=== PATIENT | female | born 1995 | race Two or more races ===

== ENCOUNTER 2017-08-13 10:33 | Outpatient (CLI) | payer OTHER ==
[2017-08-13 11:22] LABS: APPEARANCE,URINE SLIGHTLY-CLOUDY; BILIRUBIN,URINE NEGATIVE (NEGATIVE); COLOR,URINE YELLOW; GLUCOSE, URINE NEGATIVE (NEGATIVE); KETONES,URINE NEGATIVE (NEGATIVE); LEUKOCYTE ESTERASE,URINE TRACE (NEGATIVE); NITRITE,URINE NEGATIVE (NEGATIVE); PROTEIN,URINE NEGATIVE (NEGATIVE); URINE SPECIFIC GRAVITY 1.008; UROBILINOGEN,URINE NEGATIVE mg/dL (<2.0)
--- NOTE | 2017-08-13 11:37 | Non Stress Test Report ---
Non Stress Test Datetime Report Generated by CPN: 08/13/2017 11:36 DEMOGRAPHIC EGA NST: 39.1 INDICATION Indication for Study: Ordered by Provider MONITORING Monitor Explained: Monitor Explained; Test Explained; Patient Verbalized Understanding Time on Monitor: 08/13/2017 10:52 Time off Monitor: 08/13/2017 11:29 NST Duration: 37 NST INTERVENTIONS NST Interventions: None Physician Notified NST: Dr. fish BABY A: [id number] BABY A Movement : Present Contraction Frequency : irregular FHR Baseline : 145 Accelerations : 15X15 Decelerations : None Variability : Moderate 6-25bpm NST Review: Meets Criteria for Reactive NST NST Review and Verified By : HARIS REYES RN NST Results: Reactive NST REPORT Report Trigger: Send Report
[2017-08-13 11:48] LABS: URINE AMPHETAMINES SCREEN NEGATIVE; URINE BARBITURATES SCREEN NEGATIVE; URINE BENZODIAZEPINES SCREEN NEGATIVE; URINE COCAINE SCREEN NEGATIVE; URINE MARIJUANA (THC) SCREEN NEGATIVE; URINE METHADONE SCREEN NEGATIVE; URINE PHENCYCLIDINE SCREEN NEGATIVE
== END 2017-08-13 11:37 | disposition home or self-care (01) ==
LOC: LC 10:33
PROVIDERS: ATTEND Student in an Organized Health Care Education/Training Program
PROC: 4A1HXCZ Monitoring of Products of Conception, Cardiac Rate, External Approach (ICD-10-PCS; principal; 2017-08-13)
DX: O47.1 False labor at or after 37 completed weeks of gestation (principal); Z3A.39 39 weeks gestation of pregnancy
CPT/HCPCS: 59025; 80307; 81001

== ENCOUNTER 2017-08-14 10:21 | Inpatient (IN) | payer OTHER ==
[2017-08-14] MEDS ORDERED: MISOPROSTOL 0.2 MG TABLET ONE (11:11)
[2017-08-14] MEDS ORDERED: OXYTOCIN/NORMAL SALINE 20 UNIT/1,000 ML RTUINJ ONE (11:11)
[2017-08-14] MEDS ORDERED: LIDOCAINE 1% INJ-PF (10 MG/ML) 30 ML SDV ONE (11:11)
[2017-08-14 11:35] LABS: APPEARANCE,URINE CLOUDY; BILIRUBIN,URINE NEGATIVE (NEGATIVE); COLOR,URINE YELLOW; GLUCOSE, URINE NEGATIVE (NEGATIVE); KETONES,URINE NEGATIVE (NEGATIVE); LEUKOCYTE ESTERASE,URINE LARGE (NEGATIVE); NITRITE,URINE NEGATIVE (NEGATIVE); PROTEIN,URINE NEGATIVE (NEGATIVE); UROBILINOGEN,URINE NEGATIVE mg/dL (<2.0)
--- NOTE | 2017-08-14 11:47 | L&D Progress Notes ---
PROGRESS NOTES Datetime Report Generated by CPN: 08/14/2017 11:47 PROGRESS NOTE Impression: Normal Progression of Labor; Reactive Non Stress Test Procedures: Artificial ROM; Sterile Vag Exam Plan: Continue Present Management Informed Consent Obtained: Vaginal Delivery Vital Signs : Reviewed; Within Normal Limits Comment: VE = rim, arom, + light mec, tolerating labor well, Cat 1 strip VAGINAL EXAM Dilatation: 9 Effacement: 100 Station: 0 MEMBRANES Membranes: Ruptured Membranes: Intact Amniotic Fluid Color: Meconium, Light FETUS A FHR - Baseline: 155 Monitoring: External US Variability: Moderate 6-25bpm Accelerations: 15X15 Decelerations: None SIGNATURE SIGNATURE: [id number] SIGNATURE: [id number] Assignment: Leticia Romano MD Signature: with User ID: [email or web address] : with User ID: [email or web address]
[2017-08-14 11:53] LABS: URINE AMPHETAMINES SCREEN NEGATIVE; URINE BARBITURATES SCREEN NEGATIVE; URINE BENZODIAZEPINES SCREEN NEGATIVE; URINE COCAINE SCREEN NEGATIVE; URINE MARIJUANA (THC) SCREEN NEGATIVE; URINE METHADONE SCREEN NEGATIVE; URINE PHENCYCLIDINE SCREEN NEGATIVE
[2017-08-14] MEDS ORDERED: ACETAMINOPHEN 650 MG SUPP.RECT PR PRN (13:58)
[2017-08-14] MEDS ORDERED: MAGNESIUM HYDROXIDE SUSP 30 ML UDCUP PO PRN (13:58)
[2017-08-14] MEDS ORDERED: ACETAMINOPHEN WITH CODEINE #3 TABLET PO PRN ×2 (13:58)
[2017-08-14] MEDS ORDERED: DIPH/PERTUSS(ACELL)/TETANUS VAC/PF 0.5 ML SYR (>=10YO) IM PRN (13:58)
[2017-08-14] MEDS ORDERED: PROMETHAZINE HCL 25 MG SUPP.RECT PR PRN (13:58)
[2017-08-14] MEDS ORDERED: PROMETHAZINE HCL INJ 25 MG/1 ML VIAL IV PRN (13:58)
[2017-08-14] MEDS ORDERED: MEASLES,MUMPS&RUBELLA VACC/PF 0.5 ML VIAL SUBCUT PRN (13:58)
[2017-08-14] MEDS ORDERED: PROMETHAZINE HCL 25 MG TABLET PO PRN (13:58)
[2017-08-14] MEDS ORDERED: DIBUCAINE 1% OINTMENT 28 GM TP PRN (13:58)
[2017-08-14] MEDS ORDERED: OXYTOCIN/NORMAL SALINE 20 UNIT/1,000 ML RTUINJ IV PRN (13:58)
[2017-08-14] MEDS ORDERED: DIPHENHYDRAMINE HCL 25 MG CAPSULE PO PRN (13:58)
[2017-08-14] MEDS ORDERED: PSEUDOEPHEDRINE HCL 30 MG TABLET PO PRN (13:58)
[2017-08-14] MEDS ORDERED: MISOPROSTOL 0.2 MG TABLET PR PRN (13:58)
[2017-08-14] MEDS ORDERED: NA PHOS,M-B/NA PHOS,DI-BA (ADULT) 133 ML ENEMA PR PRN (13:58)
[2017-08-14] MEDS ORDERED: BENZOCAINE/MENTHOL AEROSOL SPRAY 56 ML TOP PRN (13:58)
[2017-08-14] MEDS ORDERED: GLYCERIN/WITCH HAZEL LEAF 1 EACH MED..PAD TP PRN (13:58)
[2017-08-14 13:59] LABS: HEMATOCRIT 34.7 % (36.0-47.0); HEMOGLOBIN 11.4 g/dL (12.0-15.5); MEAN CORPUSCULAR HEMOGLOBIN 28.3 pg (27.0-33.4); MEAN CORPUSCULAR HGB CONC 32.9 g/dL (32.0-36.0); MEAN CORPUSCULAR VOLUME 86 fl (80-97); PLATELET COUNT 226 10^3/uL (150-450); RED BLOOD COUNT 4.03 10^6/uL (3.72-5.28); RED CELL DISTRIBUTION WIDTH 14.4 % (11.5-14.0); WHITE BLOOD COUNT 23.6 10^3/uL (4.0-10.5)
[2017-08-14 14:18] LABS: ABSOLUTE LYMPHOCYTES# (MANUAL) 2.4 10^3/uL (0.5-4.7); ABSOLUTE MONOCYTES # (MANUAL) 1.9 10^3/uL (0.1-1.4); ABSOLUTE NEUTROPHILS# (MANUAL) 19.4 10^3/uL (1.7-8.2); BASOPHILS % (MANUAL) 0 % (0-2); EOSINOPHILS % (MANUAL) 0 % (0-6); LYMPHOCYTES % (MANUAL) 9 % (13-45); MONOCYTES % (MANUAL) 8 % (3-13); SEGMENTED NEUTROPHILS % (MAN) 82 % (42-78); TOTAL CELLS COUNTED 100
[2017-08-14 14:19] LABS: ANISOCYTOSIS SLIGHT; PLATELET COMMENT ADEQUATE; TOXIC GRANULATION SLIGHT
--- NOTE | 2017-08-14 21:10 | Delivery Summary ---
Del Sum A-C Datetime Report Generated by CPN: 08/14/2017 21:10 DELIVERY PERSONNEL DELIVERY PERSONNEL: [id number] Delivery Doctor:: Erin Walter CNM Labor and Delivery Nurse:: Mike Grayson RNdirector clinical data Nurse:: Tiffani Glasgow RN Additional Personnel: : Mounika RAVIN Mijares MATERNAL INFORMATION Delivery Anesthesia: None Medications After Delivery: Pitocin Bolus-Please Comment; Pitocin Drip 20 Units/1000ml NSS; Cytotec 600mcg Per Rectum/Vagina Estimated Blood Loss (ml): 300 Maternal Complications: None Provider Comments: viable male from OA to NALLELY over ML lac, NC x 1, easily reduced, placed on mothers abd, suctioned, stimulated and pulse ox by Ashvin Mijares RNC. Spont delivery of grossly nl intact placenta, 3 VC, EBL 300 cc, cord gas to lab and cord blood, ML lac repaired with 2-0 vicryl without difficulty, FFFM, Pitocin, massage and Cytotec 600 mcg, Baby and mom remains in recovery in stable condition Both hsb and baby bonding LABOR SUMMARY EDC: 08/19/2017 00:00 No. Babies in Womb: 1 Attempted: No Labor Anesthesia: None LABOR INFORMATION Reason for Induction: Not Applicable Onset of Labor: 08/13/2017 15:00 Complete Dilatation: 08/14/2017 12:35 Oxytocin: N/A Group B Beta Strep: negative Antibiotics # of Doses: 0 Antibiotics Time of Last Dose: n/a Name of Antibiotic Given: n/a Steroids Given: None Reason Steroids Not Administered: Not Applicable Other Reason Not Administered: n/a MEMBRANES Membranes Rupture Method: Artificial Rupture of Membranes: 08/14/2017 11:40 Length of Rupture (hr): 1.75 Amniotic Fluid Color: Light Meconium Amniotic Fluid Amount: Small Amniotic Fluid Odor: Normal STAGES OF LABOR Stage 1 hr: 21 Stage 1 min: 35 Stage 2 hr: 0 Stage 2 min: 50 Stage 3 hr: 0 Stage 3 min: 8 Total Time in Labor hr: 22 Total Time in Labor min: 33 VAGINAL DELIVERY Episiotomy: None Laceration #1: Perineal Laceration Extension #1: Second Degree Laceration #2: Periurethral Laceration Extension #2: First Degree Laceration Repair: Yes Laceration Repair Note: 2-0 vicryl, Xylocaine 1% Sponge Count Correct: N/A Sharps Count Correct: N/A CSECTION DELIVERY Primary Indication: N/A Secondary Indication: N/A BABY A INFORMATION Infant Delivery Date/Time: 08/14/2017 13:25 Method of Delivery: Vaginal Born in Route : No : N/A Forceps: N/A Vacuum Extraction: N/A Shoulder Dystocia : No PRESENTATION/POSITION BABY A Presentation: Cephalic Cephalic Presentation: Vertex Vertex Position: Right Occipital Anterior Breech Presentation: N/A PLACENTA INFORMATION BABY A Placenta Delivery Time : 08/14/2017 13:33 Placenta Method of Delivery: Spontaneous Placenta Status: Delivered SCORES BABY A Heart Rate 1 min: >100 bpm Resp Effort 1 min: Good Cry Reflex Irritability 1 min: Cough or Sneeze or Pulls Away Muscle Tone 1 min: Some Flexion of Extremities Color 1 min: Blue/Pale Resuscitation Effort 1 min: Tactile Stimulation SCORE 1 MIN: 7 Heart Rate 5 min: >100 bpm Resp Effort 5 min: Good Cry Reflex Irritability 5 min: Cough or Sneeze or Pulls Away Muscle Tone 5 min: Some Flexion of Extremities Color 5 min: Body [place], Extremities Blue Resuscitation Effort 5 min: Tactile Stimulation SCORE 5 MIN: 8 INFANT INFORMATION BABY A Gestational Age at Delivery: 39.2 Gestational Status: Full Term- 39- 40.6 Weeks Infant Outcome : Liveborn Condition : Stable Infant Sex: Male IDENTIFICATION BABY A Verification Date/Time: 08/14/2017 14:33 ID Band Number: [id number] Mother's Name Verified: Yes RN Verifying Infant: Mike Grayson, RN AND Cecile Fernandes, RN WEIGHT/LENGTH BABY A Birthweight (gm): 3170 Weight (lb): 7 Infant Weight (oz): 0 Length (in): 20.50 Infant Length (cm): 52.07 CORD INFORMATION BABY A No. Cord Vessels: 3 Nuchal Cord : Around Neck x1, Loose Cord Blood Taken: Yes-For Eval (Mom's Blood Type - or O+) Suction: Mouth ASSESSMENT BABY A Infant Complications: Meconium Physical Findings at Delivery: Molding of the Head Respirations: Appears Normal Skin to Skin: Yes Skin to Skin Time (min): 90 Gas Usage Meter Clerk/ALS Called : No Care By: D Víctorctliz [facility] Transferred To: Remains with Mother BABY B INFORMATION : N/A
[2017-08-14] MEDS ORDERED: IBUPROFEN 800 MG TABLET ONE (21:19)
--- NOTE | 2017-08-14 21:24 | Warning Signs in Babies ---
VOD Warning Signs Datetime Report Generated by [facility]: 08/14/2017 21:24 VOD#[id number] -Warning Signs in Babies: Viewed with Parent(s)/Family (08/14/2017 21:15:Kaylene Man RN)
[2017-08-14] MEDS: IBUPROFEN 800 MG TABLET PO SCH (21:44)
[2017-08-14] MEDS: DOCUSATE SODIUM 100 MG CAPSULE PO SCH (21:44)
[2017-08-14] MEDS: FERROUS SULFATE 325 MG TABLET PO SCH (21:44)
--- NOTE | 2017-08-15 00:19 | Admission Physical ---
Datetime Report Generated by CPN: 08/15/2017 00:19 CURRENT ADMISSION Hx Assessment: The History has been Reviewed and is Current Chief Complaint: Uterine Contractions Indication for Induction: Not Applicable Indication for Induction: Term, Intrauterine ; Active Labor Admit Plan: Admit to Unit; Initiate Labor Protocol ALLERGIES Medication Allergies: No Medication Allergies: No Known Allergies (08/14/2017) Latex: No Latex Allergies OBSTETRICAL HISTORY EDC: 08/19/2017 00:00 : 1 Para: 0 SEE RECORDS Alcohol: No Marijuana : No Cocaine: No Other Illicit Drugs: No Cigarettes: Never Smoker. 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 Does not appear in labor, very calm GBS neg Vital Signs: Reviewed VAGINAL EXAM Dilatation: 9 Effacement: 100 Station: 0 MEMBRANES Membranes: Ruptured Membranes: Intact Amniotic Fluid Color: Meconium, Light FETUS A EGA: 39.2 Monitoring: External US FHR- Baseline: 160 Variability: Moderate 6-25bpm FHR Category: Category I Admit Comment: Sent from office, in labor, Cat 1 strip, hsb at BS Anticipate PLANS FOR LABOR AND DELIVERY Labor and Delivery: None Pain Management: None Feeding Preference: Breast Benefit of Breast Feed Discussed: Yes Circumcision: Yes INFORMED CONSENT Informed Consent Obtained: Vaginal Delivery Assignment: Leticia Romano MD Signature: with User ID: Werner : with User ID: [email or web address]
[2017-08-15] MEDS: FAMOTIDINE 20 MG TABLET PO SCH ×3 (00:30→21:22)
[2017-08-15] MEDS: IBUPROFEN 800 MG TABLET PO SCH ×3 (05:08→21:22)
[2017-08-15 09:00] LABS: HEMATOCRIT 27.2 % (36.0-47.0); MEAN CORPUSCULAR HEMOGLOBIN 28.1 pg (27.0-33.4); MEAN CORPUSCULAR HGB CONC 32.7 g/dL (32.0-36.0); MEAN CORPUSCULAR VOLUME 86 fl (80-97); PLATELET COUNT 182 10^3/uL (150-450); RED BLOOD COUNT 3.16 10^6/uL (3.72-5.28); RED CELL DISTRIBUTION WIDTH 14.3 % (11.5-14.0); WHITE BLOOD COUNT 16.1 10^3/uL (4.0-10.5)
[2017-08-15 09:02] LABS: HEMOGLOBIN 8.9 g/dL (12.0-15.5)
[2017-08-15] MEDS: FERROUS SULFATE 325 MG TABLET PO SCH ×2 (09:05→18:07)
[2017-08-15] MEDS: SENNOSIDES/DOCUSATE 8.6-50 MG 1 EACH TABLET PO SCH (09:05)
[2017-08-15] MEDS: DOCUSATE SODIUM 100 MG CAPSULE PO SCH ×2 (09:05→18:07)
[2017-08-15] MEDS: PRENATAL VITAMIN W DHA CAPSULE PO SCH (09:06)
--- NOTE | 2017-08-15 10:32 | PDOC PROGRESS REPORT ---
Subjective-OB Progress Note for:: 08/15/17 Subjective: day #1 Doing well, bonding with baby, lochia is stable, pain well controlled, voiding without difficulty. Physical Exam (OB) Vital Signs: Temp Pulse Resp BP Pulse Ox 97.8 F 72 16 111/69 100 08/15/17 00:30 08/15/17 00:30 08/15/17 00:30 08/15/17 00:30 08/15/17 00:30 Intake & Output 08/14/17 08/15/17 08/16/17 06:59 06:59 06:59 Weight 82.3 kg - PIH/Pre-Eclampsia Clonus: Negative Headache: Absent Epigastric Pain: No Visual Changes: No - Lochia Lochia Amount: Scant < 10 ml Lochia Color: Rubra/Red - Abdomen Description: Tender Hernia Present: Yes Fundal Description: Firm Fundal Height: u/u - u/2 Objective-Diagnostic Laboratory: 08/15/17 07:56 08/14/17 08/14/17 08/14/17 10:38 12:54 12:54 WBC 23.6 H RBC 4.03 Hgb 11.4 L Hct 34.7 L MCV 86 MCH 28.3 MCHC 32.9 RDW 14.4 H Plt Count 226 Seg Neutrophils % Not Reportable Lymphocytes % Not Reportable Monocytes % Not Reportable Eosinophils % Not Reportable Basophils % Not Reportable Absolute Neutrophils Not Reportable Absolute Lymphocytes Not Reportable Absolute Monocytes Not Reportable Absolute Eosinophils Not Reportable Absolute Basophils Not Reportable ABG pH Urine Color YELLOW Urine Appearance CLOUDY Urine pH 6.0 Ur Specific [place] 1.010 Urine Protein NEGATIVE Urine Glucose (UA) NEGATIVE Urine Ketones NEGATIVE Urine Blood LARGE H Urine Nitrite NEGATIVE Ur Leukocyte Esterase LARGE H Blood Type O POSITIVE Antibody Screen NEGATIVE 08/14/17 08/15/17 13:27 07:56 WBC 16.1 H RBC 3.16 L Hgb 8.9 L D Hct 27.2 L MCV 86 MCH 28.1 MCHC 32.7 RDW 14.3 H Plt Count 182 Seg Neutrophils % Lymphocytes % Monocytes % Eosinophils % Basophils % Absolute Neutrophils Absolute Lymphocytes Absolute Monocytes Absolute Eosinophils Absolute Basophils ABG pH 7.42 Urine Color Urine Appearance Urine pH Ur Specific [place] Urine Protein Urine Glucose (UA) Urine Ketones Urine Blood Urine Nitrite Ur Leukocyte Esterase Blood Type Antibody Screen Assessment and Plan(PN) - Assessment and Plan (1) Delivery normal Is this a current diagnosis for this admission?: Yes Plan: routine pp care - Time Spent with Patient Time with patient: Less than 15 minutes Critical Time spent with patient: Less than 15 minutes Medications reviewed and adjusted accordingly: Yes - Disposition Anticipated Discharge: Home Within: within 24 hours
[2017-08-16] MEDS: IBUPROFEN 800 MG TABLET PO SCH ×2 (05:16→14:06)
[2017-08-16] MEDS: PRENATAL VITAMIN W DHA CAPSULE PO SCH (09:49)
[2017-08-16] MEDS: FERROUS SULFATE 325 MG TABLET PO SCH (09:50)
[2017-08-16] MEDS: SENNOSIDES/DOCUSATE 8.6-50 MG 1 EACH TABLET PO SCH (09:50)
[2017-08-16] MEDS: FAMOTIDINE 20 MG TABLET PO SCH (09:50)
[2017-08-16] MEDS: DOCUSATE SODIUM 100 MG CAPSULE PO SCH (09:50)
[2017-08-16 13:01] VITALS: BP 111/69
--- NOTE | 2017-08-16 13:02 | PDOC DISCHARGE SUMMARY ---
Final Diagnosis Discharge Date: 08/16/17 - Final Diagnosis (1) Acute blood loss anemia Is this a current diagnosis for this admission?: Yes (2) Delivery normal Is this a current diagnosis for this admission?: Yes Discharge Data - Discharge Medication Prescriptions: Docusate Sodium [Colace 100 mg Capsule] 100 mg PO BID #60 capsule Ferrous Sulfate [Feosol 325 mg Tablet] 325 mg PO BID #60 tablet Ibuprofen [Motrin 800 mg Tablet] 800 mg PO Q8 #60 tablet Home Medications: Pnv,Calcium 72/Iron/Folic Acid [ Plus Tablet] 1 tab PO DAILY 08/14/17 Docusate Sodium [Colace 100 mg Capsule] 100 mg PO BID #60 capsule 08/15/17 Ferrous Sulfate [Feosol 325 mg Tablet] 325 mg PO BID #60 tablet 08/15/17 Ibuprofen [Motrin 800 mg Tablet] 800 mg PO Q8 #60 tablet 08/15/17 Reason(s) for Admission: Onset of Labor Procedures: Ultrasound Intrapartum Procedure(s): Spontaneous Vaginal Delivery Complication(s): Laceration-Perineal, Laceration-Periurethral Laceration-Degree: 2nd - Diagnosis Test Laboratory: Temp Pulse Resp BP Pulse Ox 98.4 F 79 15 104/65 100 08/16/17 08:48 08/16/17 08:48 08/16/17 08:48 08/16/17 08:48 08/16/17 08:48 08/14/17 08/14/17 08/15/17 10:38 12:54 07:56 RBC 4.03 3.16 L Hgb 11.4 L 8.9 L D Hct 34.7 L 27.2 L Urine Opiates Screen NEGATIVE - Discharge information/Instructions Discharge Activity: Activity As Tolerated, No Lifting Over 10 Pounds, No Lifting /Push/Pulling, Pelvic Rest, Slowly Increase Activity, No tub bath, Walk Frequently Discharge Diet: As Tolerated, Regular Disposition: HOME, SELF-CARE Follow up with: [facility]: 4, Weeks
== END 2017-08-16 15:00 | disposition home or self-care (01) | DRG 775 ==
LOC: LC 10:21 → LR 10:27 → 2S 08-15 00:18
PROVIDERS: ADMIT Obstetrics & Gynecology; ATTEND Obstetrics & Gynecology
PROC: 10E0XZZ Delivery of Products of Conception, External Approach (ICD-10-PCS; principal; 2017-08-14)
PROC: 0KQM0ZZ Repair Perineum Muscle, Open Approach (ICD-10-PCS; 2017-08-14)
PROC: 0UQMXZZ Repair Vulva, External Approach (ICD-10-PCS; 2017-08-14)
PROC: 10907ZC Drainage of Amniotic Fluid, Therapeutic from Products of Conception, Via Natural or Artificial Opening (ICD-10-PCS; 2017-08-14)
PROC: 4A1HXCZ Monitoring of Products of Conception, Cardiac Rate, External Approach (ICD-10-PCS; 2017-08-14)
DX: O77.0 Labor and delivery complicated by meconium in amniotic fluid (principal); D62 Acute posthemorrhagic anemia; O70.1 Second degree perineal laceration during delivery; O71.82 Other specified trauma to perineum and vulva; O99.02 Anemia complicating childbirth; O69.81X0 Labor and delivery complicated by cord around neck, without compression, not applicable or unspecified; Z3A.39 39 weeks gestation of pregnancy; Z37.0 Single live birth
CPT/HCPCS: 36415; 80307; 81005; 82800; 85025; 85027; 86592; 86850; 86900; 86901; J2590; J3490